=== PATIENT | male | born 1940 | race Caucasian/White ===

== ENCOUNTER 2024-03-09 10:35 | Outpatient (CLI) | payer MEDICARE | END 2024-03-09 10:36 | disposition home or self-care (01) | LOC: CSHRAD 10:35 | PROVIDERS: ATTEND Student in an Organized Health Care Education/Training Program | DX: R22.31 Localized swelling, mass and lump, right upper limb (principal); M24.411 Recurrent dislocation, right shoulder; M19.011 Primary osteoarthritis, right shoulder ==